=== PATIENT | male | born 1945 | race Caucasian/White ===

== ENCOUNTER 2016-07-11 11:22 | Inpatient (IN) | payer MEDICARE, OTHER ==
[~2016-07-11] VITALS: Ht 180.3 cm; Wt 99.0 kg
[~2016-07-11 11:22] MED LIST: ALTACE 10MG TAB10 MG PO; ASPI81EC86; ASPIRIN 32325 MG/TAB PO; ASPIRIN E.C. 8181 MG PO; CARDI-OMEGA1000 MG PO; CORDARONE200 MG PO; COUMADIN5 MG PO; COUMADIN7.5 MG PO; DIGOXIN0.25 MG PO; DILTIAZEM90 MG PO; FLOMAX 0.40.4 MG/CAP PO; GLUCOSAMINE & C1 CAP PO; LIPITOR 40MG TA40 MG PO; LIPITOR40 MG PO; METOPROLOL25 MG PO; MICARDIS40 MG PO; MULTIPLE VITAMI1 CAP PO; MULTIPLE VITAMI1 TAB PO; NORVASC 10MG10 MG PO; OMEGA-3 FISH1200 MG PO; PLAVIX 75MG TAB75 MG PO; TYLENOL 500MG500 MG PO
[2016-09-13] MEDS ORDERED: RANEXA 500MG T500 MG PO (14:41)
[2016-09-13] MEDS ORDERED: COZAAR 50MG50 MG/TAB PO (14:41)
[2016-09-14] VITALS (12 sets, daily range): BP systolic 102–131; BP diastolic 56–85; PULSE 62–79; TEMP 97.7
[2016-09-14] MEDS ORDERED: FOLIC ACID0.4 MG PO (02:00)
[2016-09-14] MEDS ORDERED: IRON325 M2 PO (02:01)
[2016-09-14] MEDS ORDERED: VITAMIN C500 MG PO (02:04)
[2016-09-15] VITALS (7 sets, daily range): BP systolic 99–131; BP diastolic 51–80; PULSE 61–86; TEMP 97.7–98.6
[2016-09-15 06:09] LABS: HEMOGLOBIN 12.6 g/dl (13.5-18.0)
[2016-09-15 06:11] LABS: HEMATOCRIT 36.4 % (42.0-52.0)
[2016-09-16 01:57] VITALS: BP 114/65; PULSE 94; TEMP 98.1
[2016-09-16 05:34] VITALS: BP 119/68; PULSE 58; TEMP 97.3
[2016-09-16 07:24] VITALS: BP 110/57; PULSE 60; TEMP 98
[2016-09-16 12:31] VITALS: BP 112/50; PULSE 60; TEMP 98.1
== END 2016-09-16 14:25 | disposition home or self-care (01) | DRG 470 ==
LOC: JCC 09-14 05:11
PROVIDERS: Orthopaedic Surgery
PROC: 0SRD0J9 Replacement of Left Knee Joint with Synthetic Substitute, Cemented, Open Approach (ICD-10-PCS; principal; 2016-09-14 07:30)
DX: M17.12 Unilateral primary osteoarthritis, left knee (principal); I10 Essential (primary) hypertension; Z95.5 Presence of coronary angioplasty implant and graft
CPT/HCPCS: A4315; A9284; C1713; C1776; J0690; J7120

== ENCOUNTER → 2016-09-05 | Outpatient (CLI) | payer MEDICARE, OTHER ==
[~2016-09-05] MED LIST changes: +COZAAR 50MG50 MG/TAB PO; +FOLIC ACID0.4 MG PO; +IRON325 M2 PO; +NORCO 325 MG-7.1 TAB PO; +RANEXA 500MG T500 MG PO; +ROXICODONE 55 MG/TAB PO; +VITAMIN C500 MG PO; +ZANTAC 150MG T150 MG PO
[2016-09-05 13:16] LABS: HIV 1/2 Antibodies Non-Reactive; HIV-1p24 Antigen Non-Reactive
== END ==
LOC: COL.LAB 10:47
PROVIDERS: Orthopaedic Surgery
DX: Z01.812 Encounter for preprocedural laboratory examination (principal); M25.861 Other specified joint disorders, right knee

== ENCOUNTER 2016-09-07 13:12 | Inpatient (IN) | payer MEDICARE, OTHER ==
[~2016-09-07] VITALS: Ht 177.8 cm; Wt 125.7 kg
[~2016-09-07 13:12] MED LIST changes: -COZAAR 50MG50 MG/TAB PO; -FOLIC ACID0.4 MG PO; -IRON325 M2 PO; -NORCO 325 MG-7.1 TAB PO; -RANEXA 500MG T500 MG PO; -ROXICODONE 55 MG/TAB PO; -VITAMIN C500 MG PO; -ZANTAC 150MG T150 MG PO
[2016-09-13] MEDS ORDERED: COZAAR 50MG50 MG/TAB PO (14:41)
[2016-09-13] MEDS ORDERED: RANEXA 500MG T500 MG PO (14:41)
[2016-09-14] MEDS ORDERED: FOLIC ACID0.4 MG PO (02:00)
[2016-09-14] MEDS ORDERED: IRON325 M2 PO (02:01)
[2016-09-14] MEDS ORDERED: VITAMIN C500 MG PO (02:04)
[2016-11-15] VITALS (10 sets, daily range): BP systolic 83–135; BP diastolic 40–84; PULSE 64–73; TEMP 97.5–98.1
[2016-11-15] MEDS ORDERED: ZANTAC 150MG T150 MG PO (02:04)
[2016-11-15] MEDS ORDERED: VITAMIN C500 MG PO (02:05)
[2016-11-16 00:28] VITALS: BP 127/63; PULSE 77; TEMP 98.2
[2016-11-16 04:51] VITALS: BP 121/63; PULSE 75; TEMP 98.3
[2016-11-16 07:12] VITALS: BP 120/63; PULSE 70; TEMP 98
[2016-11-16 07:39] LABS: HEMATOCRIT 34.1 % (42.0-52.0); HEMOGLOBIN 11.2 g/dl (13.5-18.0)
[2016-11-16 11:18] VITALS: BP 105/52; PULSE 66; TEMP 98.3
[2016-11-16 15:18] VITALS: BP 120/59; PULSE 68; TEMP 97.5
[2016-11-16 20:50] VITALS: BP 100/55; PULSE 66; TEMP 97.4
[2016-11-17 01:04] VITALS: BP 119/64; PULSE 68; TEMP 98.2
[2016-11-17 04:51] VITALS: BP 138/62; PULSE 80; TEMP 98.4
[2016-11-17 07:11] VITALS: BP 104/58; PULSE 70; TEMP 98.2
[2016-11-17 07:30] LABS: HEMATOCRIT 34.6 % (42.0-52.0); HEMOGLOBIN 11.5 g/dl (13.5-18.0)
[2016-11-17] MEDS ORDERED: NORCO 325 MG-7.1 TAB PO (10:52)
[2016-11-17] MEDS ORDERED: ASPIRIN 32325 MG/TAB PO (10:54)
[2016-11-17] MEDS ORDERED: ROXICODONE 55 MG/TAB PO (10:54)
[2016-11-17 11:51] VITALS: BP 93/47; PULSE 71
== END 2016-11-17 14:34 | disposition home or self-care (01) | DRG 470 ==
LOC: JCC 11-15 05:10
PROVIDERS: Orthopaedic Surgery
PROC: 0SRC0J9 Replacement of Right Knee Joint with Synthetic Substitute, Cemented, Open Approach (ICD-10-PCS; principal; 2016-11-15 07:30)
DX: M17.11 Unilateral primary osteoarthritis, right knee (principal); Z68.41 Body mass index [BMI] 40.0-44.9, adult; I10 Essential (primary) hypertension; G47.33 Obstructive sleep apnea (adult) (pediatric); E66.01 Morbid (severe) obesity due to excess calories; Z95.1 Presence of aortocoronary bypass graft; Z96.652 Presence of left artificial knee joint
CPT/HCPCS: A4315; C1713; C1776; J0690; J1100; J2250; J2370; J2405; J2704; J7120

== ENCOUNTER → 2016-10-27 | Outpatient (CLI) | payer MEDICARE, OTHER ==
[~2016-10-27] MED LIST changes: +COZAAR 50MG50 MG/TAB PO; +FOLIC ACID0.4 MG PO; +IRON325 M2 PO; +NORCO 325 MG-7.1 TAB PO; +RANEXA 500MG T500 MG PO; +ROXICODONE 55 MG/TAB PO; +VITAMIN C500 MG PO; +ZANTAC 150MG T150 MG PO
[2016-10-27 12:09] LABS: HIV 1/2 Antibodies Non-Reactive; HIV-1p24 Antigen Non-Reactive
== END ==
LOC: COL.LAB 10:17
PROVIDERS: Orthopaedic Surgery
DX: Z01.818 Encounter for other preprocedural examination (principal); M17.11 Unilateral primary osteoarthritis, right knee

== ENCOUNTER 2018-01-09 15:46 | Inpatient (IN) | payer MEDICARE, OTHER ==
[~2018-01-09] VITALS: Ht 177.8 cm; Wt 94.0 kg
[2018-04-03] VITALS (12 sets, daily range): BP systolic 104–133; BP diastolic 43–69; PULSE 58–81; TEMP 97.3–98.1
[2018-04-03] MEDS ORDERED: VITAMIN C500 MG PO (01:18)
[2018-04-04 00:29] VITALS: BP 120/53; PULSE 65; TEMP 98.1
[2018-04-04 04:06] VITALS: BP 109/61; PULSE 65; TEMP 98.2
[2018-04-04 06:44] LABS: HEMOGLOBIN 11.8 g/dl (13.5-18.0)
[2018-04-04 06:45] LABS: HEMATOCRIT 35.1 % (42.0-52.0)
[2018-04-04 07:40] VITALS: BP 115/52; PULSE 63; TEMP 98.2
[2018-04-04 12:14] VITALS: BP 105/43; PULSE 64; TEMP 98.1
[2018-04-04 16:14] VITALS: BP 116/47; PULSE 71; TEMP 97.5
[2018-04-04 19:30] VITALS: BP 95/46; PULSE 59; TEMP 98.1
[2018-04-05 00:26] VITALS: BP 98/46; PULSE 60; TEMP 98.1
[2018-04-05 04:40] VITALS: BP 107/53; PULSE 58; TEMP 97.7
[2018-04-05] MEDS ORDERED: ASPI325T6 PO (07:58)
[2018-04-05] MEDS ORDERED: NORCO 325 MG-7.1 TAB PO (07:58)
[2018-04-05] MEDS ORDERED: ROXICODONE 55 MG/TAB PO (07:59)
[2018-04-05 11:52] VITALS: BP 94/43; PULSE 53; TEMP 98.5
== END 2018-04-05 13:00 | disposition home or self-care (01) | DRG 470 ==
LOC: JCC 04-03 05:07
PROVIDERS: Orthopaedic Surgery
PROC: 0SRB02A Replacement of Left Hip Joint with Metal on Polyethylene Synthetic Substitute, Uncemented, Open Approach (ICD-10-PCS; principal; 2018-04-03 07:30)
DX: M16.12 Unilateral primary osteoarthritis, left hip (principal); Z68.41 Body mass index [BMI] 40.0-44.9, adult; I10 Essential (primary) hypertension; I25.10 Atherosclerotic heart disease of native coronary artery without angina pectoris; E66.01 Morbid (severe) obesity due to excess calories; E78.5 Hyperlipidemia, unspecified
CPT/HCPCS: A4314; A4315; A9284; C1713; C1776; J0690; J1100; J2250; J2370; J2405; J2704; J3010; J7120

== ENCOUNTER → 2018-03-23 | Outpatient (CLI) | payer MEDICARE, OTHER ==
[2018-03-23 11:17] LABS: HIV 1/2 Antibodies Non-Reactive; HIV-1p24 Antigen Non-Reactive
== END ==
LOC: COL.LAB 09:51
PROVIDERS: Orthopaedic Surgery
DX: Z01.812 Encounter for preprocedural laboratory examination (principal); M16.12 Unilateral primary osteoarthritis, left hip